=== PATIENT | female | born 1955 | race Caucasian/White ===

== ENCOUNTER → 2016-10-10 | Outpatient (CLI) | payer OTHER ==
--- NOTE | 2016-10-10 17:40 | MR ---
MRI Cervical Spine (Without Contrast) at 1630 hours History: M50.30, degenerative disk disease, neck pain, back pain. Technique: Sagittal T1, T2, axial T2, and 3-D gradient echo MR sequences of the cervical spine withou t contrast. Findings: Leftward curvature of the cervical spine. No cervical compression fractures or destructiv e osseous lesions. Minimal anterolisthesis at C4-C5 and minimal retrolisthesis at C5-C6. Cerebellar t onsils are in normal position. Cord compression at C5-C6 without definite cord edema or myelomalacia. C2-C3: Mild bilateral facet arthropathy without disk herniation or stenosis. C3-C4: Mild degenerative disk disease and mild bilateral facet arthropathy with minimal dorsal disk/o steophyte complex, resulting in minimal central canal stenosis without neural foraminal stenosis. C4-C5: Mild degenerative disk disease with small dorsal disk/osteophyte complex and moderate bilatera l facet arthropathy. No significant central canal or neural foraminal stenosis. C5-C6: Moderate degenerative disk disease with moderate loss of disk height, dorsal disk/osteophyte c omplex, minimal retrolisthesis, bilateral uncovertebral osteophytes, and moderate bilateral facet art hropathy, resulting in moderate central canal stenosis with slight cord compression, with moderate to severe bilateral neural foraminal stenosis. No cord edema or myelomalacia. C6-C7: Moderate degenerative disk disease with moderate loss of disk height, dorsal disk/osteophyte c omplex, minimal retrolisthesis, bilateral uncovertebral osteophytes and moderate bilateral facet arth ropathy, resulting in mild central canal stenosis and moderate to severe bilateral neural foraminal s tenosis. C7-T1: Mild degenerative disk disease with small dorsal disk/osteophyte complex and mild bilateral fa cet arthropathy with minimal grade 1 anterolisthesis. No resulting central canal or neural foraminal stenosis. Impression: 1. C5-C6: Moderate central canal stenosis with slight cord compression, and moderate to severe bilate ral neural foraminal stenosis, secondary to moderate degenerative disk disease with dorsal disk/osteo phyte complex, slight degenerative retrolisthesis, bilateral uncovertebral osteophytes, and moderate bilateral facet arthropathy. 2. C6-C7: Mild central canal stenosis and moderate to severe bilateral neural foraminal stenosis, sec ondary to moderate degenerative disk disease with dorsal disk/osteophyte complex, minimal retrolisthe sis, bilateral uncovertebral osteophytes and moderate bilateral facet arthropathy. 3. No evidence of cord edema or myelomalacia. 4. Please see above findings at specific disk levels.
--- NOTE | 2016-10-10 17:56 | MR ---
MRI of the Lumbar Spine (Without Contrast) 1702 hours Clinical Indications: M50.30, degenerative disk disease, low back pain, M51.36. Technique: Sagittal and axial T1 and T2 and sagittal STIR MR sequences of the lumbar spine, without contrast. Axial imaging from T12 through S1. Findings: Lumbar vertebral bodies are of normal height, without compression fractures. Conus medull troy appears normal and ends at L2. T12-L1: No disk herniation or stenosis. L1-L2: Small Schmorl's node superior endplate of L2. No disk herniation or stenosis. L2-L3: Mild bilateral facet arthropathy and mild disk bulge resulting in mild central canal stenosis , without neural foraminal stenosis. L3-L4: Mild degenerative disk disease, mild disk bulge, and moderate bilateral facet arthropathy res ulting in moderate central canal stenosis and mild bilateral neural foraminal stenosis. L4-L5: A 4-mm central disk herniation and moderate bilateral facet arthropathy resulting in severe c entral canal stenosis, with complete effacement of the subarachnoid space, AP diameter of the remaini ng central canal approximately 5 mm, and mild bilateral neural foraminal stenosis. L5-S1: Severe degenerative disk disease, with severe loss of disk height, circumferential disk bulge and osteophytes, right paramedian disk herniation, protrusion, and moderate bilateral facet arthropa thy resulting in moderate central canal stenosis, severe right lateral recess stenosis, and moderate to severe bilateral neural foraminal stenosis. Impressions 1. L4-L5: Severe central canal stenosis secondary to central disk herniation and bilateral facet ar thropathy. 2. L5-S1: Severe bilateral neural foraminal stenosis, severe right lateral recess stenosis, and mod erate central canal stenosis secondary to severe degenerative disk disease, right paramedian disk her niation, and bilateral facet arthropathy. 3. Please see above findings at specific disk levels.
--- NOTE | 2016-10-10 18:25 | DX ---
Lumbar spine, 4 views with flexion and extension History: Degenerative disk disease, low back pain, M51.36. Findings: At L5-S1, intervertebral disk shows severe loss of height, with severe vacuum phenomenon a nd large, sclerotic osteophytes at the margins of the interspace. At L4-L5, intervertebral disk shows slight reduction of height, with no evidence of instability on fl exion and extension views. Other intervertebral disks have normal height. Trace upper lumbar dextrosc oliosis appears insignificant. No compression fracture. Sacroiliac joints and symphysis pubis are nor mal. Impression: 1. Severe chronic disk degeneration at L5-S1. 2. Mild loss of height of disk at L4-L5. Please see report of MRI lumbar spine of today.
--- NOTE | 2016-10-10 19:09 | DX ---
Cervical spine with flexion and extension, 4 views History: Cervical degenerative disk disease, M50.30. Neck pain since 2005. Findings: C5-C6: Intervertebral disk shows moderately severe loss of height, with vacuum phenomenon and osteoph ytes of moderate size at the margins of the interspace. With extension, 2 mm of subluxation is demons trated, reducing to normal with flexion. C6-C7: Intervertebral disk shows moderate loss of height. 2 mm of subluxation with extension reduces to normal with flexion. Spinal canal is developmentally adequate, and alignment of cervical spine is normal. No fracture of t he cervical spine. The patient has had multiple screws and sideplates in the maxillae and mandible. Impression: Chronic disk degeneration with mild subluxations at C5-C6 and C6-C7.
== END ==
LOC: FIMAGING 15:49
PROVIDERS: ATTEND Neurological Surgery
DX: M50.322 Other cervical disc degeneration at C5-C6 level (principal); S13.160A Subluxation of C5/C6 cervical vertebrae, initial encounter; M51.36 Other intervertebral disc degeneration, lumbar region; M48.06 Spinal stenosis, lumbar region; M48.07 Spinal stenosis, lumbosacral region; M48.02 Spinal stenosis, cervical region

== ENCOUNTER → 2016-11-08 | Outpatient (CLI) | payer OTHER ==
--- NOTE | 2016-11-08 09:52 | US ---
Complete Abdominal Ultrasound CLINICAL HISTORY: 61-year-old female with elevated liver function tests. ICD 10 Diagnostic Codes: R10.84 and R94.5. TECHNIQUE: A curvilinear 5 MHz transducer was used to sonographically evaluate the upper abdomen. Col or Doppler was used. COMPARISON STUDIES: Limited right upper quadrant abdominal sonography dated 01/31/2016, and complete ab dominal sonography, dated 06/19/2014. This is also correlated with unenhanced CT imaging of the abdome n and pelvis, dated 04/02/14 FINDINGS: The pancreatic contour is normal. The abdominal aorta is normal in size, and tapers normall y, and has some mild echogenic atherosclerotic plaque. The visualized IVC is normal in caliber. The h epatic vein trifurcation is normal. The main portal vein is patent. The liver is normal in size, michael uring 15.3 cm along the right midaxillary line. There is no intra or extrahepatic bile duct dilatatio n. The common bile duct measures 1.7 mm. The gallbladder is moderately distended, and there is no eduin dence of cholelithiasis, sludge, polyp, wall thickening, pericholecystic fluid, or sonographic Virk sign. A normal variant phrygian cap is seen. The gallbladder wall thickness is 2.3 mm. The right and the left kidneys are normal in size, shape, and contour, with a normal renal cortical thickness, and no focal renal mass or hydronephrosis. The right kidney measures 9.4 x 5.1 x 4.9 cm, and the left ki dney measures 10.3 x 6.3 x 4.9 cm. In the lower pole the right kidney, there is a 5 x 5 mm echogenic focus with twinkle artifact, consistent with nephrolithiasis. In the midpole portion of the left kidn ey, there are couple of 4-5 mm echogenic foci which demonstrate twinkle artifact, consistent with nep hrolithiasis. The spleen is normal in size and homogeneous in echotexture, measuring 9.2 x 8.6 x 3.0 cm. There is no ascites or pleural effusion. IMPRESSION: 1. Normal sonographic appearance of the liver, gallbladder, and biliary tree. 2. Bilateral nonobstructive nephrolithiasis.
== END ==
LOC: BRMIMAGING 08:33
PROVIDERS: ATTEND Family Medicine
DX: R94.5 Abnormal results of liver function studies (principal); N20.0 Calculus of kidney
CPT/HCPCS: 76700-PO

== ENCOUNTER 2016-12-23 18:11 | Emergency (ER) | payer OTHER ==
[2016-12-23 18:30] VITALS: BP 130/77; PULSE 73; RESP 16; TEMP 97.9; O2SAT 98
[2016-12-23] MEDS ORDERED: CARBAMIDE PEROXIDE 15 ML BOTTLE LEFTEAR ONE (19:16)
[2016-12-23] MEDS ORDERED: HYDROGEN PEROXIDE 236 ML BOTTLE TP ONE (19:56)
[2016-12-23] MEDS ORDERED: AZITHROMYCIN 250 MG TAB PO ONE (20:15)
--- NOTE | 2016-12-23 20:18 | UCPHY ---
H & P Time Seen by Provider: 12/23/16 19:09 Patient Type: Established HPI/ROS: This patient has bilateral ear pain left more than right over the past 2 weeks worsening over the past 24 hours with a pressure feeling in the left ear and diminished hearing. She also notes left PIP joint finger discomfort without antecedent trauma. She notes no exacerbating or alleviating factors for her symptoms. She reports many allergies to medications so she has not taken any Tylenol or ibuprofen or other analgesics. ROS: No fevers. No drainage from her ear. No confusion. Again no finger trauma. 5 point ROS is otherwise negative Past Medical/Surgical History: Otherwise healthy Smoking Status: Never smoked Physical Exam: Physical Exam Vital signs are normal. General: No acute distress HEENT: Nose: Clear discharge bilaterally. No sinus tenderness to percussion. Ears: Right external canal and TM are clear left external canals obscured by cerumen impaction post cerumen removal patient has erythema to the tympanic membrane but no purulent effusion. Oropharynx: No erythema or exudates. No dysphonia. No drooling or stridor. Neck: Supple Eyes: Pupils equal and react to light. Extraocular motions are intact. Lungs: Clear to auscultation bilaterally with no rales, rhonchi or wheeze. No respiratory distress. Cardiac: Regular rate and rhythm with no murmur gallop or rub Skin: No rash or pallor. Musculoskeletal: Atraumatic and normal except for left 5th finger left 5th finger exam is notable for mild swelling to the PIP joint with no laxity. No erythema. No malrotation. The IP joint and MCP joint are normal on exam. Neuro: Alert with no focal deficits noted. Initial differential diagnosis: Finger sprain, osteoarthritis, bone cyst Constitutional: Initial Vital Signs Temperature (C) 36.6 C 12/23/16 18:29 Heart Rate 73 12/23/16 18:29 Respiratory Rate 16 12/23/16 18:29 Blood Pressure 130/77 H 12/23/16 18:29 O2 Sat (%) 98 12/23/16 18:29 O2 Delivery Mode Room Air Allergies/Adverse Reactions: iodine [Iodine] Allergy (Severe, Verified 07/08/16 20:41) Other-Enter Comments oxycodone [Oxycodone] Allergy (Severe, Verified 07/08/16 20:41) Hives Penicillins Allergy (Severe, Verified 07/08/16 20:41) Hives codeine [Codeine] Allergy (Intermediate, Verified 07/08/16 20:41) Rash/TROUBLE BREATHING latex [Latex] Allergy (Mild, Verified 07/08/16 20:41) Itching TREES Allergy (Severe, Uncoded 07/07/15 16:21) RUNNING NOSE/ITCHING EYES/TROUBLE BREATHING PRESERVATIVES IN FOOD Allergy (Mild, Uncoded 07/07/15 16:21) N/V PLASMA PRESERVATIVE Allergy (Unknown, Uncoded 07/07/15 16:21) ARTIFICAL FOOD COLORING Allergy (Uncoded 07/07/15 16:21) N/V AND BLOATING Fillers in Generic meds Allergy (Uncoded 07/07/15 16:21) Fillers in Meds Allergy (Uncoded 07/07/15 16:21) Home Medications: Medication Instructions Recorded Estrogen,Bioidentical 1 tab SL DAILY 01/31/16 Pregnenolone,Bioidentical 1 tab SL DAILY 01/31/16 Progesterone,Bioidentical 1 tab SL DAILY 01/31/16 Testosterone,Bioidentical 1 tab SL DAILY 01/31/16 Azithromycin [Zithromax] 250 mg PO DAILY #4 tab 12/23/16 Medical Decision Making - Diagnostics Imaging: Finger x-ray: Read already by Dr. Martinez also reviewed by myself-normal ED Course/Re-evaluation: We liz-taped her 4th 5th finger and counseled regarding finger sprain. Debrox to the left ear followed by irrigation by our nurse with removal of some cerumen. I then used a manual plastic tool to remove cerumen and was able to visualize the tympanic membrane described physical exam. There were no complications. Patient tolerated this well. - Data Points Medications Given: Discontinued Medications Azithromycin (Zithromax) 500 mg PO EDNOW ONE PRN Reason: Protocol Stop: 12/23/16 20:16 Last Admin: 12/23/16 20:27 Dose: 500 mg Carbamide Peroxide (Debrox) 5 drop LEFTEAR EDNOW ONE Stop: 12/23/16 19:17 Last Admin: 12/23/16 19:26 Dose: 5 drops Departure - Departure Disposition: Home, Routine, Self-Care Clinical Impression: Impacted cerumen of left ear, Finger pain, left Otitis media Qualifiers: Otitis media type: serous Laterality: left Chronicity: acute Recurrence: not specified as recurrent Qualified Code(s): H65.02 - Acute serous otitis media, left ear Condition: Good Instructions: Otitis Media (ED), Musculoskeletal Pain (ED) Additional Instructions: Diagnosis: 1. Cerumen impaction of the year-resolved 2. Inner ear infection 3. Finger pain Plan: Zithromax antibiotic as prescribed Liz tape fingers and ice to the 5th finger few times a day until symptoms improve Follow up with primary care physician for any ongoing symptoms. Referrals: MALINA ROCHE [Primary Care Provider] - As per Instructions Prescriptions: Azithromycin [Zithromax] 250 mg PO DAILY #4 tab - PQRS PQRS Measurement: 134: Depression screening and followup, PRIME MD-PHQ2 (12 years and older) Over the last 2 weeks, how often have you been bothered by any of the following problems? 1. Feeling down, depressed, or hopeless? 2. Little interest or pleasure in doing things? Patient answered no to both 1 and 2 130: Documentation of medications. Reviewed all patient medications, doses, route and frequency. 226: Do you smoke? [No.] 47: 65 and older: Advanced care planning. Patient designates surrogate decision maker as spouse 51: 18 years old and older with diagnosis of COPD, spirometry performance. NA 52: 18 years old and older with COPD and symptoms of COPD or FEV1<60% predicted prescribed a B Agonist. NA
== END 2016-12-23 20:28 | disposition home or self-care (01) ==
LOC: CED 18:11
DX: H65.02 Acute serous otitis media, left ear (principal); H61.21 Impacted cerumen, right ear; S63.616A Unspecified sprain of right little finger, initial encounter; X58.XXXA Exposure to other specified factors, initial encounter
CPT/HCPCS: 73140; G0463

== ENCOUNTER → 2017-04-27 | Outpatient (CLI) | payer OTHER | LOC: FIMAGING 15:19 | PROVIDERS: ATTEND Family Medicine | DX: D18.02 Hemangioma of intracranial structures (principal) ==

== ENCOUNTER 2017-10-29 08:21 | Emergency (ER) | payer OTHER ==
[2017-10-29 08:35] VITALS: RESP 16
--- NOTE | 2017-10-29 09:01 | EDPHY ---
H & P Stated Complaint: can cut to r 3rd finger lac now red and painful HPI/ROS: CHIEF COMPLAINT: Swollen red finger History by patient HISTORY OF PRESENT ILLNESS: 62-year-old woman who is right-hand dominant presents complaining of pain and swelling of her right middle finger at the site of laceration she occurred yesterday from the can of coconut milk. She initially wash the wound and put some bacitracin ointment on it. She noticed some mild pain before bed. Then she woke up in the middle the night around 2: 00 a.m. with severe pain in her finger. She had difficulty sleeping because of this. This morning she looked at it she noticed it was red, swollen and the redness was progressing down to her MCP joint. She has not taken anything for the pain. She denies any fever. Her last tetanus is unknown. REVIEW OF SYSTEMS: As in HPI, and all other systems reviewed and are negative Source: Patient - Personal History Current Tetanus/Diphtheria Vaccine: Unsure Current Tetanus Diphtheria and Acellular Pertussis (TDAP): Unsure - Medical/Surgical History Hx Asthma: No Hx Chronic Respiratory Disease: No Hx Diabetes: No Hx Cardiac Disease: No Hx Renal Disease: No Hx Cirrhosis: No Hx Alcoholism: No Hx HIV/AIDS: No Hx Splenectomy or Spleen Trauma: No Other PMH: factor 10 clotting. IBS. ortho surg - Social History Smoking Status: Never smoked - Physical Exam Exam: General Appearance: Alert and no distress. Nontoxic-appearing Eyes: Pupils equal and round no injection. Musculoskeletal: Neck is supple and nontender. Extremities: Right hand positive 1 cm superficial laceration over PIP joint with surrounding erythema and tenderness and 6 cm of redness extending to the MCP joint. Active Range of motion is limited the PID do due to pain, Full passive range of motion of the joint with no pain, distal cap refill less than 2 sec, distal sensation intact, no involvement of the flexor surface, full range of active motion of MCP and PIP joints with some pain and full passive range of motion without pain Skin: No rashes or lesions except as described above. Constitutional: Initial Vital Signs Heart Rate 67 10/29/17 08:27 Respiratory Rate 16 10/29/17 08:27 Blood Pressure 131/61 H 10/29/17 08:27 O2 Sat (%) 97 10/29/17 08:27 O2 Delivery Mode Room Air O2 (L/minute) 36.7 Allergies/Adverse Reactions: iodine [Iodine] Allergy (Severe, Verified 10/29/17 08:33) Other-Enter Comments oxycodone [Oxycodone] Allergy (Severe, Verified 10/29/17 08:33) Hives Penicillins Allergy (Severe, Verified 10/29/17 08:33) Hives codeine [Codeine] Allergy (Intermediate, Verified 10/29/17 08:33) Rash/TROUBLE BREATHING latex [Latex] Allergy (Mild, Verified 10/29/17 08:33) Itching TREES Allergy (Severe, Uncoded 10/29/17 08:33) RUNNING NOSE/ITCHING EYES/TROUBLE BREATHING PRESERVATIVES IN FOOD Allergy (Mild, Uncoded 10/29/17 08:33) N/V PLASMA PRESERVATIVE Allergy (Unknown, Uncoded 10/29/17 08:33) ARTIFICAL FOOD COLORING Allergy (Uncoded 10/29/17 08:33) N/V AND BLOATING Fillers in Generic meds Allergy (Uncoded 10/29/17 08:33) Fillers in Meds Allergy (Uncoded 10/29/17 08:33) Home Medications: Medication Instructions Recorded Estrogen,Bioidentical 1 tab SL DAILY 01/31/16 Pregnenolone,Bioidentical 1 tab SL DAILY 01/31/16 Progesterone,Bioidentical 1 tab SL DAILY 01/31/16 Testosterone,Bioidentical 1 tab SL DAILY 01/31/16 Cephalexin 500 mg PO QID #40 tablet 10/29/17 Medical Decision Making ED Course/Re-evaluation: [age] old woman nontoxic-appearing presents with cellulitis at the site of a superficial laceration 24 hr ago. There is no purulence. There is no systemic toxicity. Patient is afebrile. The redness was delineated with a skin marker. Patient states she has a history of penicillin allergy, where it made her stop breathing, but has subsequently taking amoxicillin several times without problems. She does not know she has ever taking Keflex. Given that the patient tolerates amoxicillin I think it is safe to try Keflex we did discuss small risk of cross reaction with penicillin. We discussed home care including keeping the wound covered with Aquaphor, daily soaks, keeping it elevated, Tylenol as needed for pain. Patient declined any stronger pain medicines. She states that she is currently in the process of changing primary care physician so she will return here tomorrow for recheck and sooner if worsening. - Data Points Medications Given: Discontinued Medications Cephalexin HCl (Keflex) 500 mg PO EDNOW ONE PRN Reason: Protocol Stop: 10/29/17 09:20 Last Admin: 10/29/17 09:23 Dose: 500 mg Diphtheria/Tetanus/Acell Pertussis (Boostrix) 0.5 ml IM .ONCE ONE Stop: 10/29/17 09:20 Last Admin: 10/29/17 09:29 Dose: 0.5 ml Departure - Departure Disposition: Home, Routine, Self-Care Clinical Impression: Cellulitis of finger, right Condition: Good Instructions: Cellulitis (DC) Additional Instructions: You were seen by Dr. Caroline Saavedra today. Take cephalexin as prescribed. Take your 1st dose right away. Take probiotics in between doses once a day. Soak your finger in warm soapy water at least 3 times a day and keep it elevated above the level of the heart. Take Tylenol as needed for pain and ice the area. Return immediately if you have increased pain or swelling or redness creeping outside the marked area. Return for recheck in 24 hr and sooner if worse. Return for any worsening or new concerns. Referrals: ARMANI AGUILAR [Primary Care Provider] - As per Instructions Prescriptions: Cephalexin 500 mg PO QID #40 tablet
[2017-10-29] MEDS ORDERED: CEPHALEXIN 500 MG CAP PO ONE (09:19)
[2017-10-29] MEDS ORDERED: TDAP ADULT 0.5 ML INJ (BOOSTRIX) IM ONE (09:19)
[2017-10-29 09:37] VITALS: BP 122/58; PULSE 66; O2SAT 98
== END 2017-10-29 09:35 | disposition home or self-care (01) ==
LOC: CED 08:21
DX: L03.011 Cellulitis of right finger (principal); Z23 Encounter for immunization; Z91.040 Latex allergy status

== ENCOUNTER 2017-10-30 00:43 | Inpatient (IN) | payer OTHER ==
--- NOTE | 2017-10-30 00:54 | EDPHY ---
H & P Time Seen by Provider: 10/30/17 00:53 HPI/ROS: 62-year-old female with a history of irritable bowel syndrome and factor 10 clotting disorder, presents with complaint of worsening redness and swelling of her right middle finger over the last 2 days. She sustained a laceration to her right PIP on MondayOctober 27 from a can coconut milk. She states she washed it immediately the there after and control bleeding and then placed bacitracin on the wound. The following day she came to the emergency department for redness and swelling of her right middle finger. At that time she was started on cephalexin 500 mg p. o. four times daily she took that for 4 doses and returns tonight after midnight with complaint of worsening redness and swelling in that area. She states she really has not slept in 2 days because of pain. Review of systems As per HPI General no fever no chills no weakness HEENT no eye pain no eye discharge. No eye redness, no sore throat Respiratory no cough, no shortness of breath Cardiac no chest pain, no peripheral edema GI no abdominal pain, no diarrhea, no constipation, no nausea, no vomiting no flank pain, no hematuria, no dysuria Musculoskeletal no myalgias, positive joint pain Heme no easy bruising, no easy bleeding Endo no polyuria, no polydipsia Skin positive for rash no pruritus Neuro no syncope, no dizziness, no headaches Psych is no suicidal ideation, no homicidal ideation Past Medical/Surgical History: Multiple allergies Irritable bowel syndrome Factor 10 clotting disorder Social History: Denies alcohol or drug use Smoking Status: Never smoked Physical Exam: 62-year-old female alert and oriented in moderate distress secondary to right hand pain Right hand dominant Erythema and swelling extending from PIP to approximately 2 cm above MCP of right middle finger Limited range of motion at MCP and PIP, held in flexion Diffuse tenderness both on the palmar and dorsal surface extending from PIP to just above MCP Good capillary refill Atraumatic normocephalic Extraocular muscle intact, anicteric Neck supple Lungs clear to auscultation bilaterally Heart regular rate and rhythm without murmur rub or gallop Abdomen NABS soft nontender Extremities other than right hand as described above, negative cyanosis clubbing or edema Constitutional: Initial Vital Signs Temperature (C) 36.6 C 10/30/17 00:50 Heart Rate 78 10/30/17 00:50 Respiratory Rate 16 10/30/17 00:50 Blood Pressure 137/64 H 10/30/17 00:50 O2 Sat (%) 95 10/30/17 00:50 O2 Delivery Mode Room Air Allergies/Adverse Reactions: iodine [Iodine] Allergy (Severe, Verified 10/29/17 08:33) Other-Enter Comments oxycodone [Oxycodone] Allergy (Severe, Verified 10/29/17 08:33) Hives Penicillins Allergy (Severe, Verified 10/29/17 08:33) Hives codeine [Codeine] Allergy (Intermediate, Verified 10/29/17 08:33) Rash/TROUBLE BREATHING latex [Latex] Allergy (Mild, Verified 10/29/17 08:33) Itching gluten Allergy (Verified 10/30/17 02:35) soy Allergy (Verified 10/30/17 02:35) TREES Allergy (Severe, Uncoded 10/29/17 08:33) RUNNING NOSE/ITCHING EYES/TROUBLE BREATHING PRESERVATIVES IN FOOD Allergy (Mild, Uncoded 10/29/17 08:33) N/V PLASMA PRESERVATIVE Allergy (Unknown, Uncoded 10/29/17 08:33) ARTIFICAL FOOD COLORING Allergy (Uncoded 10/29/17 08:33) N/V AND BLOATING Fillers in Generic meds Allergy (Uncoded 10/29/17 08:33) Fillers in Meds Allergy (Uncoded 10/29/17 08:33) Home Medications: Medication Instructions Recorded Estrogen,Bioidentical 1 tab SL DAILY 01/31/16 Pregnenolone,Bioidentical 1 tab SL DAILY 01/31/16 Progesterone,Bioidentical 1 tab SL DAILY 01/31/16 Testosterone,Bioidentical 1 tab SL DAILY 01/31/16 Cephalexin 500 mg PO QID #40 tablet 10/29/17 Medical Decision Making ED Course/Re-evaluation: Patient seen and evaluated for worsening redness and swelling of her right middle finger. X-ray right hand No fracture, no foreign body CBC, CMP, sed rate all within normal limits Lactate negative Blood cultures pending First dose IV vancomycin 1 g started. Impression Worsening cellulitis right middle finger Rule out flexor tenosynovitis Discussed with the physician's salon assistant for the hand surgeon Dr. Kauffman, advise keeping patient NPO Plan Will admit to the hospitalist at [facility] Discussed with hospitalist , Dr. Ghotra Bed ordered placed Patient to be admitted for IV antibiotics and to be seen by Hand surgery sometime later today. Differential Diagnosis: cellulitis, dermatitis, flexor tenosymovitis - Data Points Laboratory Results: Laboratory Results 10/30/17 01:00 10/30/17 01:00 10/30/17 10/30/17 10/30/17 01:00 01:00 01:00 WBC 6.80 10^3/uL 10^3/uL (3.80-9.50) RBC 4.61 10^6/uL 10^6/uL (4.18-5.33) Hgb 14.4 g/dL g/dL (12.6-16.3) Hct 41.2 % % (38.0-47.0) MCV 89.4 fL fL (81.5-99.8) MCH 31.2 pg pg (27.9-34.1) MCHC 35.0 g/dL g/dL (32.4-36.7) RDW 12.8 % % (11.5-15.2) Plt Count 257 10^3/uL 10^3/uL (150-400) MPV 8.1 fL L fL (8.7-11.7) Neut % (Auto) 68.7 % % (39.3-74.2) Lymph % (Auto) 17.5 % % (15.0-45.0) [place] % (Auto) 11.2 % % (4.5-13.0) Eos % (Auto) 2.1 % % (0.6-7.6) Baso % (Auto) 0.4 % % (0.3-1.7) Nucleat RBC Rel Count 0.0 % % (0.0-0.2) Absolute Neuts (auto) 4.67 10^3/uL 10^3/uL (1.70-6.50) Absolute Lymphs (auto) 1.19 10^3/uL 10^3/uL (1.00-3.00) Absolute Monos (auto) 0.76 10^3/uL 10^3/uL (0.30-0.80) Absolute Eos (auto) 0.14 10^3/uL 10^3/uL (0.03-0.40) Absolute Basos (auto) 0.03 10^3/uL 10^3/uL (0.02-0.10) Absolute Nucleated RBC 0.00 10^3/uL 10^3/uL (0-0.01) Immature Gran % 0.1 % % (0.0-1.1) Immature Gran # 0.01 10^3/uL 10^3/uL (0.00-0.10) ESR 15 MM/HR MM/HR (0-30) VBG Lactic Acid 1.6 mmol/L mmol/L (0.7-2.1) Sodium 139 mEq/L mEq/L (135-145) Potassium 4.2 mEq/L mEq/L (3.5-5.2) Chloride 101 mEq/L mEq/L (97-110) Carbon Dioxide 24 mEq/l mEq/l (22-31) Anion Gap 14 mEq/L mEq/L (8-16) BUN 18 mg/dL mg/dL (7-23) Creatinine 0.9 mg/dL mg/dL (0.6-1.0) Estimated GFR > 60 Glucose 133 mg/dL H mg/dL (70-100) Calcium 9.4 mg/dL mg/dL (8.5-10.4) Total Bilirubin 0.3 mg/dL mg/dL (0.1-1.4) AST 34 IU/L IU/L (14-46) ALT 33 IU/L IU/L (9-52) Alkaline Phosphatase 69 IU/L IU/L (38-126) Total Protein 6.5 g/dL g/dL (6.3-8.2) Albumin 3.5 g/dL g/dL (3.5-5.0) Medications Given: Ciprofloxacin/Dextrose (Cipro 400 Mg (Premix)) 200 mls @ 200 mls/hr IV Q12H WILL PRN Reason: Protocol Stop: 11/29/17 04:44 Last Admin: 10/30/17 05:11 Dose: 200 mls Discontinued Medications Vancomycin/Sodium Chloride (Vancomycin 1 Gm (Premix)) 250 mls @ 250 mls/hr IV EDNOW ONE PRN Reason: Protocol Stop: 10/30/17 02:15 Last Admin: 10/30/17 01:42 Dose: Not Given Vancomycin HCl 1 gm/ Sodium (Chloride) 250 mls @ 250 mls/hr IV EDNOW ONE PRN Reason: Protocol Stop: 10/30/17 02:17 Last Admin: 10/30/17 01:35 Dose: 250 mls Departure - Departure Disposition: [facility] Inpatient Acute Clinical Impression: Cellulitis of right hand Condition: Good
[2017-10-30] MEDS ORDERED: VANCOMYCIN HCL/NORMAL SALINE 250 ML IV ONE (01:16)
[2017-10-30] MEDS ORDERED: VANCOMYCIN 1 GM in NS 250 ML IV ONE (01:18)
[2017-10-30 01:22] LABS: PLATELET COUNT 257 10^3/uL (150-400)
[2017-10-30] MEDS ORDERED: ONDANSETRON 4 MG/2 ML VIAL IVP PRN (04:29)
[2017-10-30] MEDS ORDERED: ACETAMINOPHEN 325 MG TAB PO PRN (04:29)
[2017-10-30] MEDS ORDERED: LORazepam 2 MG/ML INJ IVP PRN (04:29)
[2017-10-30] MEDS ORDERED: CIPROFLOXACIN 400 MG/DEXTROSE 200 ML IV SCH (04:45)
[2017-10-30] MEDS: CIPROFLOXACIN 400 MG/DEXTROSE 200 ML IV SCH ×2 (05:11→16:22)
[2017-10-30] MEDS ORDERED: POLYETHYLENE GLYCOL 3350 17 GM PKT PO PRN (06:18)
[2017-10-30] MEDS ORDERED: MAGNESIUM HYDROXIDE 30 ML UDCUP PO PRN (06:18)
[2017-10-30] MEDS ORDERED: LACTULOSE 20 GM/30 ML UDCUP PO PRN (06:18)
--- NOTE | 2017-10-30 07:02 | GHP ---
[f rep st] HISTORY AND PHYSICAL DATE OF ADMISSION: 10/30/2017 SOURCE: Patient provides history, appears reliable. Her electronic medical record was also reviewed and case discussed with ED provider before patient arrived from [facility] CHIEF COMPLAINT: Right middle finger pain and swelling. HISTORY OF PRESENT ILLNESS: This is a very pleasant 62-year-old female with past medical history sig nificant for irritable bowel syndrome, constipation predominant, and factor X deficiency, as well as multiple food allergies, who presents to the emergency department today with complaints of several da ys of worsening right middle finger swelling and pain. On 10/27/2017, patient was opening a can of coconut milk when she lacerated the dorsal aspect of her right middle finger. The patient r eports that she immediately washed it out and had been using Bacitracin and covering with a Band-Aid, however, noticed increased swelling and woke up from pain at approximately 2 a.m. on 10/28/2017 with erythema. She presented to [facility], where she was prescribed Keflex. She did take 4 doses of antibioti cs, but continued to have increasing pain, swelling, and decreased range of motion at which point she presented to [facility] for re-evaluation. Patient denies any fevers, chills. No current nausea, vomiting . No numbness or tingling in the distal extremity. Sensation is intact, but again range of motion i s significantly limited at the PIP. Patient is still able to have some flexion at the MCP, but she d oes have some overlying erythema that has extended from just distal to the PIP with swelling and now extending across the MCP of the 2nd, 3rd, and 4th digits. REVIEW OF SYSTEMS: GENERAL: No fevers chills. SKIN: Patient without any other rashes, sores excep t as noted in HPI in the right middle finger and hand. ENT: Patient reports chronic dry mouth. No sore throat. EYES: No acute changes in vision. Does wear readers. CV: No chest pain, palpitation s. RESPIRATORY: No shortness of breath or cough. GI: Patient with history of constipation. No na usea, vomiting, or abdominal pain. : No dysuria or hematuria. MUSCULOSKELETAL: Right hand and 3 rd middle finger swelling and pain as noted per HPI, otherwise negative. NEURO: Patient denies any numbness, tingling. No headache. No focal deficits. PSYCH: Patient reports that she is currently quite anxious regarding her active infection and diagnosis. HEME: Patient reports a history of fact or X deficiency. She is followed by Dr. South with hematology. She has a previous history of requirin g plasma transfusion with reaction to a preservative of the anaphylactic type with facial swelling. Remainder of review of systems negative except as noted above. ALLERGIES: Iodine; oxycodone, results in GI distress; penicillin; codeine; latex; gluten; soy; and m ultiple food and medication preservatives and color additives. HOME MEDICATIONS: Multiple [id number] antioxidants and bioidentical plant-based hormone. PAST MEDICAL HISTORY: Significant for irritable bowel syndrome, constipation predominant. Factor X deficiency. PAST SURGICAL HISTORY: Significant for right rotator cuff surgery, right plantar release, and multip le oral surgeries. FAMILY HISTORY: Significant for hypertension in multiple family members. Mother with history of CAD , age 46. Father with history of cancer, at advanced age. SOCIAL HISTORY: Patient is . She lives with her . She does not smoke, drink, or do [employer] rugs. 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 CODE STATUS: Full. PHYSICAL EXAM: VITAL SIGNS: At [facility] earlier today, blood pressure 137/64, heart rate 78, respiratory rate 16, O2 saturation 95% on room air with a temperature of 36.6. Current vitals: Blood pressure 112/47, heart rate of 75, respiratory rate 18, O2 saturation 95% on room air with the temperature 36. 7. GENERAL: No acute distress. Very pleasant adult female who is sitting up in bed. She does appe ar anxious and slightly restless. HEAD: Normocephalic, atraumatic. EYES: Extraocular muscles merary sly intact. Pupils equal, round, reactive to light bilaterally and symmetric. No scleral icterus or conjunctival injection. ENT: Mucous membranes appear moist. No pharyngeal erythema or exudates. Dentition is in fair condition. NECK: Supple, trachea midline. CV: Regular rate and rhythm. No m urmurs, rubs, or gallops appreciated. RESPIRATORY: Unlabored breathing. Lungs are clear to auscult ation bilaterally. No wheezes, rales, or rhonchi. ABDOMEN: Positive bowel sounds. Soft, nontender to palpation. No rebound, guarding, or masses appreciated. : No suprapubic tenderness to palpat ion. No Singh catheter in place. EXTREMITIES: The patient's lower extremities without any cyanosis , clubbing, or edema. Patient with 1+ pedal pulses bilaterally and symmetric. Her left upper extrem ity is with appropriate strength and range of motion. On the right, patient does have notable swelli ng and erythema to the 3rd middle finger that is circumferential. She also has some erythema extendi ng past the marked line over the MCP proximally and extending laterally over the MCPs of the 2nd and 4th fingers as well. Her sensation is intact. Cap refill is normal. Range of motion is significant ly limited in the 3rd digit. She does have severely limited motion at the PIP. She has decreased ra nge of motion at the MCP, but denies any pain at that joint. NEURO: Grossly nonfocal. No facial dr ooping. Moves all extremities. PSYCH: Patient is significantly anxious and restless. She is quiet ly concerned regarding treatment plan, possibility for surgery, and need to stay in the hospital for additional days given the severity of her infection. She asks similar questions multiple times, but again is anxious and does have appropriate memory intact and asks more for reassurance rather than fo r her memory. LABORATORY STUDIES: WBC 6.80, H and H 14.4 and 41.2, MCV of 89.4, platelet count is 257. Neutrophil percent 68.7. No bands. No shifts. ESR is 15. VBG: Lactic acid 1.6. Sodium is 139, potassium i s 4.2, chloride 101, CO2 is 24, anion gap 14, BUN 18, creatinine is 0.9. GFR greater than 60, glucos e 133, calcium 9.4, total bilirubin 0.3, ALT is 33, AST 34, alkaline phosphatase 69, total protein 6. 5, albumin 3.5. X-ray image reviewed, report is pending. No appreciated acute fractures. Soft tissue swelling is no leslie in the 3rd middle finger and over the MCP. ASSESSMENT AND PLAN: A very pleasant 62-year-old female with history of irritable bowel syndrome, fa ctor X deficiency, and multiple food and medication allergies, [facility] of right middle finger pain, swelling following an accidental laceratio n. 1. Right middle finger cellulitis and potential for tenosynovitis, although patient's decreased rang e of motion appears related more to her joint pain and inflammation. She has initially declined any pain medications due to concerns for gastrointestinal side effects, for which patient reports she suf fers from severe abdominal pain and worsening constipation. She does report that she has taken morph ine in the past and she is amenable to do a low dose of this. I have also added some Ativan p.r.n. a nd Benadryl. The patient was given vancomycin at [facility] prior to her arrival. Add ition of ciprofloxacin will be added. Patient is status post 4 doses of Keflex. She has not had any gastrointestinal side effects at this point, but again she reiterates how she has significantly conc erned regarding need for escalation of antibiotics and the effect it may have on her GI tract. Ortho pedic surgery has been consulted from [facility] before patient arrived. They will le n to see the patient this morning. Until their evaluation, patient will remain n.p.o. 2. Acute pain related to cellulitis. Medications as noted above. After multiple minutes, approxima tely 30 minutes of discussion with the patient regarding options for pain management and risks/benefi ts, she is finally amenable to utilize a low dose of morphine versus Ativan versus Benadryl and advis ed patient she may alternate as tolerated. 3. Irritable bowel syndrome, predominantly constipation. Will place patient on a p.r.n. bowel regim en. She refuses to take any Dulcolax, so we will remove this from the order set. She did not have a ny abdominal pain at this time. The patient is inquiring regarding probiotics. Advised that if she desires to have these, then she will need to supply from home doses. They are not carried on her [facility] formulary. 4. Anxiety. Patient is amenable to use of lorazepam at this time. She is significantly worried, hamilton s not slept in 2 days. I attempted to reassure patient with extensive discussion, after which again she is amenable to utilize a low dose of Ativan at this time p.r.n. 5. History of factor X deficiency. If patient requires surgical intervention, plasma may be require d to minimize any risk of bleeding. Again, she is followed by Dr. South with Hematology. Will await O rthopedic evaluation this morning for recommendations. 6. Fluid, electrolyte, nutrition: Patient will receive IV fluids overnight and electrolytes will be monitored replaced if needed. Nutrition: Patient currently n.p.o. The patient also reports when h er diet is advanced that she has very strict needs and so we will plan to have her bring her food from home. 7. Prophylaxis. Sequential compression devices only. Holding anticoagulation until evaluated by Or thopedic surgery. Anticipate holding further anticoagulation with her history of factor X. 8. Code status is full. Patient's is medical durable [id number]. 9. Disposition. Patient has been admitted to inpatient status given severity of the cellulitis and extension with failure of oral antibiotics. Anticipate the patient will require greater than 2 midni t stay. The patient will be admitted to the medical floor. /[id number]/MODL
--- NOTE | 2017-10-30 08:05 | PDMN ---
Medical Necessity Medical necessity: M70 cellulitis- failed outpt tx, progressive, ongoing need for IV abx poss tenosynovitis in pt with hx of IBS, factor X def. and mult allergies,
[2017-10-30] MEDS: SENNOSIDES/DOCUSATE SODIUM TAB PO SCH ×2 (08:49→21:06)
--- NOTE | 2017-10-30 08:54 | PDCONSULT ---
[employer] Note: Patient Name: PEACE QUINONEZ Date of : 1955 Patient Status: Inpatient Attending Provider: Kathryn Ghotra Date: 10/30/17 H & P HPI/ROS: 62-year-old RHD female with a h/o irritable bowel syndrome and factor 10 clotting disorder, presents with complaint of worsening redness and swelling over the dorsum of her right middle finger proximal phalanx over the last 2 days. She sustained a laceration to her right PIP on MondayOctober 27 from a can coconut milk. She states she washed it immediately after the injury and then placed bacitracin over the wound. States she noticed the next day worsening redness/swelling and an inability to make a full fist and decided to F /U in the ED. Additionally, she admits there is warmth noted to the area of erythema. She states pain now well controlled, however, still has swelling and pain to the digit. Denies numbness/tingling, fever, chills, NVD, recent infection or similar previous symptoms. Past surgical hx pertinent for right shoulder RCR in 2009. 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 in room with patient, she is sitting up and able to respond appropriately to questions. ROS: An otherwise 11 point ROS is negative except for as stated above. Past Medical/Surgical History: Multiple allergies: listed below. Irritable bowel syndrome Factor 10 clotting disorder Social History: Denies alcohol or drug use Smoking Status: Never smoked Physical Exam: 62-year-old female,alert and able to respond appropriately to questions, in moderate distress secondary to right hand pain Right hand dominant. HEENT: NAD, EOMs intact, moist buccal mucosa, hearing intact, no lymphadenopathy. CV: Non-labored breathing, no diaphoresis, RRR, C2A b/l, calves soft/supple and NTTP b/l. SCDs in place b/l. Ab: Soft, nontender, nondistended. Right hand digit 3(middle finger): Erythema, edema and heat noted on dorsum over the proximal phalanx and extending approximately 20mm into the middle phalanx joint. Unable to make a full fist due to swelling and pain to patient. No erythema, edema, change in heat, flexure contracture noted to the palmar aspect of the finger. Extensor mechanisms and flexor mechanisms grossly intact. Unable to fully assess strength due to swelling/pain to patient. Brisk cap refill. NVI with gross sensation intact b/l and no focal deficits. X-Ray: 3 views of right hand digit 3 show no fracture, malalignments or deformities. Labs: Blood cultures still pending. Allergies/Adverse Reactions: iodine [Iodine] Allergy (Severe, Verified 10/29/17 08:33) Other-Enter Comments oxycodone [Oxycodone] Allergy (Severe, Verified 10/29/17 08:33) Hives Penicillins Allergy (Severe, Verified 10/29/17 08:33) Hives codeine [Codeine] Allergy (Intermediate, Verified 10/29/17 08:33) Rash/TROUBLE BREATHING latex [Latex] Allergy (Mild, Verified 10/29/17 08:33) Itching gluten Allergy (Verified 10/30/17 02:35) soy Allergy (Verified 10/30/17 02:35) TREES Allergy (Severe, Uncoded 10/29/17 08:33) RUNNING NOSE/ITCHING EYES/TROUBLE BREATHING PRESERVATIVES IN FOOD Allergy (Mild, Uncoded 10/29/17 08:33) N/V PLASMA PRESERVATIVE Allergy (Unknown, Uncoded 10/29/17 08:33) ARTIFICAL FOOD COLORING Allergy (Uncoded 10/29/17 08:33) N/V AND BLOATING Fillers in Generic meds Allergy (Uncoded 10/29/17 08:33) Fillers in Meds Allergy (Uncoded 10/29/17 08:33) Home Medications: Medication Instructions Recorded Estrogen,Bioidentical 1 tab SL DAILY 01/31/16 Pregnenolone,Bioidentical 1 tab SL DAILY 01/31/16 Progesterone,Bioidentical 1 tab SL DAILY 01/31/16 Testosterone,Bioidentical 1 tab SL DAILY 01/31/16 Cephalexin 500 mg PO QID #40 tablet 10/29/17 Medical Decision Making Assessment/Evaluation: -Right hand digit 3 swelling/erythema over dorsum of proximal phalanx: negative X-rays, no further advanced imaging. Patient to receive MRI of right hand digit 3 for further evaluation of progressing infection v cellulitis. Additionally, maintain NPO status at this time. Continue antibiotics as have already been prescribed. Continue plan per IM/hospitalists, appreciate their recommendations. Patient advised to watch for fever, chills, worsening numbness/tingling, worsening change in heat/color to extremity and to contact a medical professional as soon as possible. Patient seen and examined in conjunction with Dr. Kauffman today. Questions/ concerns call our office [phone]. Differential Diagnosis: cellulitis, tenosynovitis Lab and Imaging 10/30/17 01:00 10/30/17 01:00 WBC 6.80 10^3/uL (3.80-9.50) 10/30/17 01:00 RBC 4.61 10^6/uL (4.18-5.33) 10/30/17 01:00 Hgb 14.4 g/dL (12.6-16.3) 10/30/17 01:00 Hct 41.2 % (38.0-47.0) 10/30/17 01:00 MCV 89.4 fL (81.5-99.8) 10/30/17 01:00 MCH 31.2 pg (27.9-34.1) 10/30/17 01:00 MCHC 35.0 g/dL (32.4-36.7) 10/30/17 01:00 RDW 12.8 % (11.5-15.2) 10/30/17 01:00 Plt Count 257 10^3/uL (150-400) 10/30/17 01:00 MPV 8.1 fL (8.7-11.7) L 10/30/17 01:00 Neut % (Auto) 68.7 % (39.3-74.2) 10/30/17 01:00 Lymph % (Auto) 17.5 % (15.0-45.0) 10/30/17 01:00 [place] % (Auto) 11.2 % (4.5-13.0) 10/30/17 01:00 Eos % (Auto) 2.1 % (0.6-7.6) 10/30/17 01:00 Baso % (Auto) 0.4 % (0.3-1.7) 10/30/17 01:00 Nucleat RBC Rel Count 0.0 % (0.0-0.2) 10/30/17 01:00 Absolute Neuts (auto) 4.67 10^3/uL (1.70-6.50) 10/30/17 01:00 Absolute Lymphs (auto) 1.19 10^3/uL (1.00-3.00) 10/30/17 01:00 Absolute Monos (auto) 0.76 10^3/uL (0.30-0.80) 10/30/17 01:00 Absolute Eos (auto) 0.14 10^3/uL (0.03-0.40) 10/30/17 01:00 Absolute Basos (auto) 0.03 10^3/uL (0.02-0.10) 10/30/17 01:00 Absolute Nucleated RBC 0.00 10^3/uL (0-0.01) 10/30/17 01:00 Immature Gran % 0.1 % (0.0-1.1) 10/30/17 01:00 Immature Gran # 0.01 10^3/uL (0.00-0.10) 10/30/17 01:00 ESR 15 MM/HR (0-30) 10/30/17 01:00 VBG Lactic Acid 1.6 mmol/L (0.7-2.1) 10/30/17 01:00 Sodium 139 mEq/L (135-145) 10/30/17 01:00 Potassium 4.2 mEq/L (3.5-5.2) 10/30/17 01:00 Chloride 101 mEq/L (97-110) 10/30/17 01:00 Carbon Dioxide 24 mEq/l (22-31) 10/30/17 01:00 Anion Gap 14 mEq/L (8-16) 10/30/17 01:00 BUN 18 mg/dL (7-23) 10/30/17 01:00 Creatinine 0.9 mg/dL (0.6-1.0) 10/30/17 01:00 Estimated GFR > 60 10/30/17 01:00 Glucose 133 mg/dL (70-100) H 10/30/17 01:00 Calcium 9.4 mg/dL (8.5-10.4) 10/30/17 01:00 Total Bilirubin 0.3 mg/dL (0.1-1.4) 10/30/17 01:00 AST 34 IU/L (14-46) 10/30/17 01:00 ALT 33 IU/L (9-52) 10/30/17 01:00 Alkaline Phosphatase 69 IU/L (38-126) 10/30/17 01:00 Total Protein 6.5 g/dL (6.3-8.2) 10/30/17 01:00 Albumin 3.5 g/dL (3.5-5.0) 10/30/17 01:00 Temp Pulse Resp BP Pulse Ox 36.8 C 78 16 101/52 L 94 10/30/17 07:59 10/30/17 07:59 10/30/17 07:59 10/30/17 07:59 10/30/17 07:59 Total Bilirubin 0.3 mg/dL (0.1-1.4) 10/30/17 01:00 AST 34 IU/L (14-46) 10/30/17 01:00 ALT 33 IU/L (9-52) 10/30/17 01:00 Visualized and Interpreted Chest x-ray results: Yes Lab Data & Imaging Review 10/30/17 01:00 10/30/17 01:00
[2017-10-30] MEDS ORDERED: GADOBUTROL 10 ML VIAL IVP ONE (10:05)
--- NOTE | 2017-10-30 10:18 | HOSPPROG ---
Hospitalist Progress Note Assessment/Plan: Patient is a 62-year-old female with past medical history of interval bowel stay syndrome, factor X deficiency who presented the emergency room with several days of worsening right middle finger swelling and pain. Today is my 1st encounter with the patient. Chart reviewed. Advanced Dr. Ortiz with Infectious Disease Care to get involved with her care. * right middle finger cellulitis -concern for tendosynovitis -to get an MRI today -will initiate iv fluids until we know if she may have surgery * pain due to the above * IBS * anxiety -stable * history of factor X deficiency *Plan: awaiting results of MRI, updated the patient and her Subjective: Izzy is wanting to know if she can eat, the pain has improved in her finger. Objective: Vital Signs Temp Pulse Resp BP Pulse Ox 36.8 C 78 16 101/52 L 94 10/30/17 07:59 10/30/17 07:59 10/30/17 07:59 10/30/17 07:59 10/30/17 07:59 10/29/17 10/30/17 10/31/17 05:59 05:59 05:59 Intake Total 465 Balance 465 - Physical Exam Constitutional: no apparent distress, appears nourished Eyes: PERRL Ears, Nose, Mouth, Throat: hearing normal Respiratory: no respiratory distress Skin: warm, other (right middle finger with swelling, can bend finger slightly, tender and the joint spaces) Neurologic: AAOx3 Psychiatric: interacting appropriately, not encephalopathic, thought process linear ICD10 Worksheet Patient Problems: Problems Problem Status Onset Cellulitis of right hand Acute Concussion injury of brain Active Neck pain Active Chest pain Acute Fatigue Acute
--- NOTE | 2017-10-30 11:47 | SOAPPROG ---
SOAP Progress Note Assessment/Plan: Assessment: Cellulitis of long finger from dorsal laceration. No bone joint or tendon sheath involvement. Normal white count. Plan:Recommend IV abx with empiric coverage for staph (most likely) and follow clinical exam. 10/30/17 11:44 Dalia Objective: Vital Signs Temp Pulse Resp BP Pulse Ox 36.8 C 78 16 101/52 L 94 10/30/17 07:59 10/30/17 07:59 10/30/17 07:59 10/30/17 07:59 10/30/17 07:59 10/29/17 10/30/17 10/31/17 05:59 05:59 05:59 Intake Total 465 Balance 465 Reviewed MRI, No evidence of Joint or tendon sheath involvement. ICD10 Worksheet Patient Problems: Problems Problem Status Onset Cellulitis of right hand Acute Concussion injury of brain Active Neck pain Active Chest pain Acute Fatigue Acute
[2017-10-30] MEDS ORDERED: NS 1,000 ML IV SCH (12:00)
[2017-10-30] MEDS ORDERED: VANCOMYCIN HCL/NORMAL SALINE 250 ML IV SCH (14:00)
[2017-10-30] MEDS: VANCOMYCIN 1 GM in D5W 250 ML IV SCH (14:24)
--- NOTE | 2017-10-30 14:30 | ASMTCMCOM ---
CM Note CM Note Notes: 10/30/2017 Case Management Note Reviewed chart. There are no case management d/c needs identified d/t pt age, employment status, marital status and activity levels prior to admission. There are no PT or OT evals ordered at this time. Case Management d/c poc: anticipating independent with follow up as directed. Case Management will follow to assess for possible d/c antibiotic needs. Date Signed: 10/30/2017 02:29 PM Electronically Signed By:Fernanda Amado RN
--- NOTE | 2017-10-30 18:40 | GCON ---
[f rep st] CONSULTATION INFECTIOUS DISEASE CONSULTATION REFERRING PHYSICIAN: Thalia Carias NP REASON FOR CONSULTATION: Right 3rd digit dorsum cellulitis. HISTORY OF PRESENT ILLNESS: Patient is a 62-year-old female, who presented to [facility] on 10/30/2017, complaining of a 3-day history of increasing inflammation on the dorsal aspect of h er right middle finger after cutting herself on a can of coconut milk on 10/27/2017. The patient per formed immediate first aid including washing the laceration and using antibiotic ointment. The patie nt presented to [facility] the following day with complaints of increasing erythema and was prescribed oral Keflex. Despite use of this antibiotic over the past 24 hours, she had increasing pain, swelling, an d decreased range of motion. The patient re-presented to the urgent care and was given a dose of van comycin and ciprofloxacin and referred for admission. She underwent an MRI evaluation of her right h and earlier today. The results of that test showed dorsal subcutaneous cellulitis involving the 3rd digit tracking proximally in the hand. No evidence of collection. PAST MEDICAL HISTORY: 1. Factor X deficiency. 2. Irritable bowel syndrome. PAST SURGICAL HISTORY: 1. Status post right rotator cuff surgery. 2. Multiple oral surgeries. ANTIBIOTICS: 1. Vancomycin. 2. Cipro. ALLERGIES: Patient is allergic to penicillin. SOCIAL HISTORY: Patient is . No significant tobacco, alcohol or drug use noted. FAMILY HISTORY: Reviewed, but noncontributory. REVIEW OF SYSTEMS: Other than that detailed above in History of Present Illness, a comprehensive 10- system review is negative. PHYSICAL EXAMINATION: VITAL SIGNS: Temperature maximum is 36.8, temperature currently is 36.8. Hea rt rate is 78, respiratory rate is 16, blood pressure is 101/52. GENERAL: The patient is a well-for med, well-nourished older female, in no acute distress. She is nontoxic in appearance. She is alert and oriented x3. She has a pleasant demeanor. HEENT: Normocephalic for age. Atraumatic. No scle ral icterus. No oral lesion. No drainage from nares. HEART: Regular rate and rhythm. No signific ant peripheral edema. LUNGS: Clear to auscultation bilaterally. Good effort. SKIN: Warm and dry to the touch. No generalized rash. Patient does have confluent erythema over the dorsal aspect of h er 3rd digit and 3rd MCP on the right side. There is no fluctuance. The patient is able to be led t hrough passive range of motion with minimal tenderness. NEURO: Cranial nerves 2-12 seem to be intac t. Peripheral sensation seems intact in extremities. LABORATORY DATA: Patient has a CBC, dated 10/30/2017, shows a white blood cell count of 6.8, hemoglo bin of 14.4, hematocrit of 41.2, and a platelet count of 257, differential is within normal limits. Erythrocyte sedimentation rate is 15. Serum chemistries on 10/30/2017, are all within normal limits. Creatinine 0.9. MICROBIOLOGIC DATA: Patient had blood cultures dated 10/30/2017, which are pending. RADIOLOGIC DATA: Patient has an MRI, dated 10/30/2017, which shows dorsal subcutaneous cellulitis in volving the 3rd digit tracking proximally into the hand without evidence of abscess or osteomyelitis. ASSESSMENT: Right 3rd digit cellulitis. The patient had this by cutting herself on the open can of coconut milk. Unclear whether this exposes her to other pathogens than we would normally consider. We will continue to use a combination of vancomycin and ciprofloxacin and evaluate the changes as the y occur. PLAN: 1. Vancomycin and ciprofloxacin intravenously. 2. Follow appearance of erythema on the dorsum of the right hand. /[id number]/MODL
[2017-10-31] MEDS: VANCOMYCIN 1 GM in D5W 250 ML IV SCH (02:00)
[2017-10-31] MEDS: CIPROFLOXACIN 400 MG/DEXTROSE 200 ML IV SCH (03:58)
[2017-10-31] MEDS: SENNOSIDES/DOCUSATE SODIUM TAB PO SCH ×2 (09:12→22:27)
--- NOTE | 2017-10-31 09:33 | PCMIDPN ---
Assessment/Plan: Assessment/Plan: 1. Right third digit cellulitis with extension to hand: - inciting event is laceration from coconut milk can - Improving slowly compared to yesterday. less swellling and less bright redness overall but still present. New areas today. - Confirmed with pateint that she had taken amoxicillin several times wihtout difficulty and tolerated keflex. -clinically this appears most consistent with streptococcal process - will change vanco/cipro to ancef and clinda. adding clinda due to some mild new pink areas over 2nd and 4th mcp region and a bit on hand -discussed importance of elevation of extremity in detail - blood cx ngtd. - MRI reviewed: no abscess/osteo. -reviewed plan of care wit patient and - care coordinated with RN - care coordinated with hospitalist team and Dr. Kauffman. meds mikeo larisaro Subjective: afebrile. . feels better today. still has some swelling on dorsum of hand along with erythema (less bright) involving third finger along with MCP of 2,3,4 digits. no numbness /tingling of digits. denies sob, abd pian or diarrhea. Objective: Vital Signs Temp Pulse Resp BP Pulse Ox 36.3 C 75 16 108/63 97 10/31/17 07:23 10/31/17 07:23 10/31/17 07:23 10/31/17 07:23 10/31/17 07:23 10/30/17 10/31/17 11/01/17 05:59 05:59 05:59 Intake Total 465 970 Output Total 600 Balance 465 370 ESR 15 MM/HR (0-30) 10/30/17 01:00 - Physical Exam General Appearance: alert, no apparent distress Respiratory: lungs clear Cardiac/Chest: regular rate, rhythm Extremities: swelling (right third digit swelling noted. mild warmth. light erythema over third digit extending over mcp of 2,3,4 regions. mild swelling on dorsum of hand. ), No other (no LE edema. right radial pulse well appreciated.) Skin: other (see above.) Neuro/Psych: No sensory deficit - Time Spent With Patient Time Spent with Patient: greater than 35 minutes Time Spent with Patient: Greater than 35 minutes spent on this patients care, greater than 50% of time spent counseling, educating, and coordinating care regarding the above mentioned plan. ICD10 Worksheet Patient Problems: Problems Problem Status Onset Cellulitis of right hand Acute Concussion injury of brain Active Neck pain Active Chest pain Acute Fatigue Acute
[2017-10-31] MEDS: ceFAZolin 2 GM/DEXTROSE 100 ML IV SCH ×3 (10:19→17:29)
--- NOTE | 2017-10-31 13:14 | HOSPPROG ---
Hospitalist Progress Note Assessment/Plan: Patient is a 62-year-old female with past medical history of interval bowel stay syndrome, factor X deficiency who presented the emergency room with several days of worsening right middle finger swelling and pain. * right third finger cellulitis -reviewed his care with Dr Shell -antibiotics changed to cefazolin and Clindamycin -strep like in appearance * pain due to the above * IBS * anxiety -stable * history of factor X deficiency *Plan: continue iv antibiotics for next day and possibly through tomorrow Subjective: Izzy is feeling better today. Objective: Vital Signs Temp Pulse Resp BP Pulse Ox 36.7 C 76 16 107/53 L 96 10/31/17 11:15 10/31/17 11:15 10/31/17 11:15 10/31/17 11:15 10/31/17 11:15 10/30/17 10/31/17 11/01/17 05:59 05:59 05:59 Intake Total 465 970 Output Total 600 Balance 465 370 - Physical Exam Constitutional: no apparent distress, appears nourished, not in pain Eyes: PERRL Ears, Nose, Mouth, Throat: hearing normal Cardiovascular: regular rate and rhythym Respiratory: no respiratory distress Gastrointestinal: normoactive bowel sounds Skin: other (redness noted on middle finger and extends to the base of the finger and towards the base of the index finger and towards the little finger. Slightly warm.) Neurologic: AAOx3 Psychiatric: interacting appropriately ICD10 Worksheet Patient Problems: Problems Problem Status Onset Cellulitis of right hand Acute Concussion injury of brain Active Neck pain Active Chest pain Acute Fatigue Acute
[2017-10-31] MEDS: CLINDAMYCIN 600 MG/DEXTROSE 50 ML IV SCH ×2 (14:28→22:26)
--- NOTE | 2017-10-31 19:06 | SOAPPROG ---
SOAP Progress Note Assessment/Plan: Assessment: Improving Plan:Recommend IV abx for another day and if continued improvement change to oral abx. I do not need to see in F/U unless situation changes. 10/30/17 11:44 Dalia 10/31/17 19:05 Subjective: Feels better today. Objective: Vital Signs Temp Pulse Resp BP Pulse Ox 36.7 C 76 16 100/63 96 10/31/17 15:25 10/31/17 15:25 10/31/17 15:25 10/31/17 15:25 10/31/17 15:25 10/30/17 10/31/17 11/01/17 05:59 05:59 05:59 Intake Total 722 393 9086 Output Total 600 Balance 981 886 1477 Decreased erythema and swelling. Tip to palm distance is now 1cm (4 cm yesterday) with composite fist attempt. ICD10 Worksheet Patient Problems: Problems Problem Status Onset Cellulitis of right hand Acute Concussion injury of brain Active Neck pain Active Chest pain Acute Fatigue Acute
[2017-11-01] MEDS: ceFAZolin 2 GM/DEXTROSE 100 ML IV SCH ×3 (02:53→18:18)
[2017-11-01] MEDS: CLINDAMYCIN 600 MG/DEXTROSE 50 ML IV SCH ×3 (06:18→21:54)
--- NOTE | 2017-11-01 08:23 | SOAPPROG ---
SOAP Progress Note Assessment/Plan: Assessment: right middle finger cellulitis improving Plan: Symptoms improving, would be okay to change from IV antibiotics to oral antibiotics Continue with conservative treatment: ice, elevation Dr. Kauffman does not need to see in F/U unless situation changes Subjective: Patient states that her right middle finger is feeling better today. She has less pain, swelling and redness. Objective: Vital Signs Temp Pulse Resp BP Pulse Ox 36.5 C 64 15 118/68 94 11/01/17 07:24 11/01/17 07:24 11/01/17 07:24 11/01/17 07:24 11/01/17 07:24 10/31/17 11/01/17 11/02/17 05:59 05:59 05:59 Intake Total 970 2800 Output Total 600 Balance 370 2800 Physical exam of the RUE: middle finger has decreased erythema and swelling. There is minimal pain with attempting a fist formation and ROM of the middle finger. Normal sensation to light touch in the RUE. Distal pulse present in the RUE. ICD10 Worksheet Patient Problems: Problems Problem Status Onset Cellulitis of right hand Acute Concussion injury of brain Active Neck pain Active Chest pain Acute Fatigue Acute
[2017-11-01] MEDS: SENNOSIDES/DOCUSATE SODIUM TAB PO SCH ×2 (08:43→19:58)
--- NOTE | 2017-11-01 15:10 | PCMIDPN ---
Assessment/Plan: Assessment: Cellulitis dorsum of the right hand encompassing the proximal phalanx of the 3rd digit as well as the MCP areas of the 3rd and 4th digits. Patient has noted significant resolution of the intensity of the erythema. She was changed empirically to cefazolin from vancomycin and ciprofloxacin yesterday. Will continue the IV cefazolin monotherapy. If there is significant improvement again tomorrow we will switch her to oral Keflex for discharge. Anticipate total duration of therapy to be 10 days. Plan: 1. Continue IV cefazolin. 2. Follow up tomorrow for appearance of dorsum of right hand. If improved patient can discharge home on Keflex 500 mg p.o. 4 times daily to complete a 10 day course. 11/01/17 16:57 Subjective: Patient is resting in her hospital bed. She states that there has been some improvement in the bright S and swelling of the dorsum of her right hand. She is able to flex her fist better than yesterday. It still is impaired from baseline however. Objective: Cefazolin # 1 Vital Signs Temp Pulse Resp BP Pulse Ox 36.5 C 64 15 118/68 94 11/01/17 07:24 11/01/17 07:24 11/01/17 07:24 11/01/17 07:24 11/01/17 07:24 10/31/17 11/01/17 11/02/17 05:59 05:59 05:59 Intake Total 970 2800 Output Total 600 Balance 370 2800 ESR 15 MM/HR (0-30) 10/30/17 01:00 - Physical Exam General Appearance: WD/WN, alert, no apparent distress, non-toxic Extremities: swelling, erythema, No non-tender, No normal inspection (Dorsum right hand with edema and erythema. Improved from yesterday.) Skin: normal color, warm/dry, No rash Neuro/Psych: alert, normal mood/affect, oriented x 3 ICD10 Worksheet Patient Problems: Problems Problem Status Onset Cellulitis of right hand Acute Concussion injury of brain Active Neck pain Active Chest pain Acute Fatigue Acute
[2017-11-01] MEDS: PROBIOTIC PO SCH ×2 (16:37→19:57)
--- NOTE | 2017-11-01 18:30 | HOSPPROG ---
Hospitalist Progress Note Assessment/Plan: Patient is a 62-year-old female with PMH IBS, factor X deficiency who was admitted for acute cellulitis of her finger. R 3rd digit cellulitis, likely 2/2 strep - improving R 3rd digit pain IBS Factor X deficiency Anxiety -D/w ID specialist - continue IV Abx 1 more day -Switch to po Abx and DC to home tomorrow. -Ok to take home supplements including probiotics. -VTE ppx - ambulatory, does not need. this pt is new to me. I have reviewed chart/records for this visit. Subjective: today pt feels well. Finger infection improving. She has been walking laps around the floor. Objective: Vital Signs Temp Pulse Resp BP Pulse Ox 36.7 C 79 16 131/62 H 94 11/01/17 16:00 11/01/17 16:00 11/01/17 16:00 11/01/17 16:00 11/01/17 16:00 10/31/17 11/01/17 11/02/17 05:59 05:59 05:59 Intake Total 970 2800 Output Total 600 Balance 370 2800 Gen: NAD, A&O, F HEENT: EOMI, MMM. MSK: nl gait. Neuro: CN II-XII grossly intact. Psych: approp mood/affect. Skin: +mild erythema of dorsum of 3rd digit R hand. Heme/lymph: +mild swelling of 3rd digit R hand. - Pending Discharge Pending Discharge Within 24 Hours: Yes Pending Discharge Date: 11/02/17 Pending Discharge Time: 11:00 ICD10 Worksheet Patient Problems: Problems Problem Status Onset Cellulitis of right hand Acute Concussion injury of brain Active Neck pain Active Chest pain Acute Fatigue Acute
[2017-11-02] MEDS: ceFAZolin 2 GM/DEXTROSE 100 ML IV SCH ×2 (02:00→10:03)
[2017-11-02] MEDS: CLINDAMYCIN 600 MG/DEXTROSE 50 ML IV SCH (05:33)
[2017-11-02 07:20] VITALS: BP 108/51; PULSE 65; RESP 16; TEMP 97.3; O2SAT 95
--- NOTE | 2017-11-02 08:15 | SOAPPROG ---
SOAP Progress Note Assessment/Plan: Assessment: Right middle finger cellulitis: improving with antibiotics. Plan: Symptoms improving, would be okay to change from IV antibiotics to oral antibiotics per IM/ID. Continue with conservative treatment: ice, elevation. Shown AROM exercises and encourage ROM and no heavy lifting. Dr. Kauffman does not need to see in F/U unless situation changes; questions/ concerns call our office at [phone]. D/C once stable and F/U in clinic following discharge. Patient advised to watch for fever/chills/NVD, change in ROM/strength, worsening numbness/tingling, change in heat/color of extremity, change in swelling and to seek immediate medical attention if seen. Patient agrees/understands this plan. Patient/plan discussed with Dr. Kauffman. 11/02/17 08:15 11/02/17 08:15 Subjective: Patient alert and oriented. Able to respond appropriately to questions. States she is ready for D/C today. Cellulitis has been improving and she has increased ROM to the finger. Denies fever, chills, NVD, cough, congestion, chest pain, SOB, dyspnea, worsening numbness/tingling, worsening change in heat/ color of digit. Has been compliant in antibiotics and states she is having good bowel movements with no worsening change in stool. Objective: Vital Signs Temp Pulse Resp BP Pulse Ox 36.3 C 65 16 108/51 L 95 11/02/17 07:17 11/02/17 07:17 11/02/17 07:17 11/02/17 07:17 11/02/17 07:17 11/01/17 11/02/17 11/03/17 05:59 05:59 05:59 Intake Total 2800 500 Balance 2800 500 Patient alert and oriented, NAD, HEENT: ANASTASIYA, EOMs intact, moist buccal mucosa, patent nares. Non-labored breathing, no diaphoresis noted. Calves soft/supple and NTTP b/l. Upper extremities: Right hand: right middle finger erythema and edema improved since I last saw her, she has increased ROM of the digit, short of 3 cm of making a full fist. Minimally TTP over right middle finger. Brisk cap refill present b/l. Gross sensation intact b/l with no focal deficits noted. NVI b/l. 5 /5 education managers strength present b/l and extensor and flexor mechanisms of right MF grossly intact with no sign of deficit. ICD10 Worksheet Patient Problems: Problems Problem Status Onset Concussion injury of brain Active Neck pain Active Cellulitis of right hand Acute Chest pain Acute Fatigue Acute
[2017-11-02] MEDS: SENNOSIDES/DOCUSATE SODIUM TAB PO SCH (08:36)
[2017-11-02] MEDS: PROBIOTIC PO SCH (08:38)
--- NOTE | 2017-11-02 12:17 | ASDISCHSUM ---
Discharge Information Plan Status:Home with No Needs Medically Cleared to Leave: Discharge Date:11/02/2017 11:55 AM CM D/C Disposition:Home, Routine, Self-Care ADT D/C Disposition:Home, Routine, Self-Care Projected Discharge Date:11/02/2017 11:55 AM Transportation at D/C: Discharge Delay Reason: Follow-Up Date:11/02/2017 11:55 AM Discharge Slot: Final Diagnosis: Placement Information Patient Contact Information Contact Name:JANE Relationship: Address:[address] Work Phone: City:[place] Alternate Phone: [facility]/Zip Code:[place] [address] Email: Financial Information Financial Class:Medicare Advantage Plans Primary Plan Desc:UNITED MEDICARE COMPLETE Primary Plan Number:[id number] Secondary Plan Desc: Secondary Plan Number: Assessment Information [facility] CM Progress Note CM Note CM Note Notes: 10/30/2017 Case Management Note Reviewed chart. There are no case management d/c needs identified d/t pt age, employment status, marital status and activity levels prior to admission. There are no PT or OT evals ordered at this time. Case Management d/c poc: anticipating independent with follow up as directed. Case Management will follow to assess for possible d/c antibiotic needs. Date Signed: 10/30/2017 02:29 PM Electronically Signed By:Fernanda Amado RN [facility] CM Progress Note CM Note CM Note Notes: Pt medically stable for d/c on oral antibiotics. No CM d/c needs identified. Date Signed: 11/02/2017 12:16 PM Electronically Signed By:SOLEDAD Suarez Intervention Information Intervention Type:*IM-Signed Date of Service:11/02/2017 11:37 AM Patient Type:Inpatient Staff Member:Pam Motley Hours: Discipline: Severity: Comment:
--- NOTE | 2017-11-02 18:42 | GDS ---
[f rep st] DISCHARGE SUMMARY DISCHARGE DIAGNOSIS: Cellulitis of the dorsum of the right hand. CONSULTATIONS: Infectious Disease. Dr. Dariel Kauffman. STUDIES AND PROCEDURES DONE: MRI. PHYSICAL EXAM: GENERAL: The patient is alert. VITAL SIGNS: Afebrile at 36.3, pulse 65, respirator y rate 16, blood pressure is 108/51. She is saturating 95% on room air. I have seen and evaluated t he patient on the day of discharge. HOSPITAL COURSE: The patient is a 62-year-old female who presents with complaints of hand redness an d pain. She was evaluated and diagnosed with cellulitis of the right 3rd digit and dorsal side of th e hand. She was treated with IV antibiotic therapy during this hospitalization. She did receive a c onsultation from Orthopedics as well as Infectious Disease. Her condition has responded well to IV a ntibiotic therapy. She will continue Keflex q.i.d. for a total of 10 more days. She also has a hist ory of irritable bowel syndrome, as well as Factor X deficiency and anxiety. These appear to be stab le and she will continue her previously prescribed home medications. There are no pending studies. DISCHARGE MEDICATIONS: Please refer to EMR form. I have provided the prescription for cephalexin 50 0 mg p.o. 4 times daily #40. I have not adjusted any of her other previously prescribed home medicat ions to the best of my knowledge. I reviewed her disposition with Dr. Syed Ortiz, who is in agreement with this plan. FOLLOWUP: She will follow up with Dr. Ortiz in the outpatient setting as well as her primary care leanne ceballos. I spent greater than 35 minutes in the care, coordination, and management of this patient's dispositi on. /[id number]/MODL
== END 2017-11-02 11:55 | disposition home or self-care (01) | DRG 603 ==
LOC: CED 00:43 → CEDHOLD 01:39 → F3N 03:36
PROVIDERS: ADMIT Family Medicine; ATTEND Internal Medicine
DX: L03.113 Cellulitis of right upper limb (principal); S61.202A Unspecified open wound of right middle finger without damage to nail, initial encounter; W26.8XXA Contact with other sharp object(s), not elsewhere classified, initial encounter; F41.9 Anxiety disorder, unspecified; D68.2 Hereditary deficiency of other clotting factors; K58.9 Irritable bowel syndrome, unspecified
CPT/HCPCS: 73130-PO; 80053-PO; 83605-PO; 85025-PO; 85652-PO; A9585; J0690; J0744; J2060; J3370

== ENCOUNTER → 2018-05-22 | Outpatient (CLI) | payer OTHER | LOC: FIMAGING 14:18 | PROVIDERS: ATTEND Surgery | DX: Z03.89 Encounter for observation for other suspected diseases and conditions ruled out (principal) ==

== ENCOUNTER → 2018-11-21 | Outpatient (CLI) | payer OTHER | LOC: CIMAGING 08:13 | PROVIDERS: ATTEND Registered Nurse | DX: R10.11 Right upper quadrant pain (principal); M25.511 Pain in right shoulder; Z87.19 Personal history of other diseases of the digestive system; N20.0 Calculus of kidney | CPT/HCPCS: 76700-PO ==

== ENCOUNTER → 2019-01-31 | Outpatient (CLI) | payer OTHER | LOC: FIMAGING 14:50 | DX: K85.00 Idiopathic acute pancreatitis without necrosis or infection (principal); N28.9 Disorder of kidney and ureter, unspecified ==